=== PATIENT | male | born 1960 | race Caucasian/White ===

== ENCOUNTER 2020-02-03 06:34 | Emergency (ER) | payer MEDICARE, OTHER ==
[2020-02-03 08:03] LABS: ABSOLUTE EOSINOPHILS # (AUTO) 0.1 10^3/uL (0.0-0.6); ABSOLUTE LYMPHOCYTES (AUTO) 1.5 10^3/uL (0.5-4.7); ABSOLUTE MONOCYTES (AUTO) 0.4 10^3/uL (0.1-1.4); ABSOLUTE NEUT (AUTO) 7.3 10^3/uL (1.7-8.2); BASOPHILS % (AUTO) 0.5 % (0-2); EOSINOPHILS % (AUTO) 1.2 % (0-6); HEMATOCRIT 43.1 % (37.9-51.0); HEMOGLOBIN 14.2 g/dL (13.5-17.0); LYMPHOCYTES % (AUTO) 15.8 % (13-45); MEAN CORPUSCULAR HEMOGLOBIN 28.2 pg (27.0-33.4); MEAN CORPUSCULAR VOLUME 85 fl (80-97); MONOCYTES % (AUTO) 4.4 % (3-13); PLATELET COUNT 310 10^3/uL (150-450); RED BLOOD COUNT 5.05 10^6/uL (4.35-5.55); RED CELL DISTRIBUTION WIDTH 14.6 % (11.5-14.0); SEGMENTED NEUTROPHILS % (AUTO) 78.1 % (42-78); TOTAL CELLS COUNTED % (AUTO) 100 %; WHITE BLOOD COUNT 9.4 10^3/uL (4.0-10.5)
[2020-02-03 08:22] LABS: ALBUMIN 4.3 g/dL (3.5-5.0); ALKALINE PHOSPHATASE 106 U/L (38-126); ANION GAP 6 (5-19); ASPARTATE AMINO TRANSFERASE 26 U/L (17-59); BILIRUBIN,DIRECT 0.1 mg/dL (0.0-0.4); BILIRUBIN,TOTAL 1.2 mg/dL (0.2-1.3); BLOOD UREA NITROGEN 17 mg/dL (7-20); CALCIUM 9.8 mg/dL (8.4-10.2); CARBON DIOXIDE 29 mmol/L (22-30); CHLORIDE 102 mmol/L (98-107); GLUCOSE 219 mg/dL (75-110); POTASSIUM 5.2 mmol/L (3.6-5.0); TOTAL PROTEIN 7.2 g/dL (6.3-8.2)
--- NOTE | 2020-02-03 08:25 | ER Document Report ---
ED General - General Chief Complaint: Nausea Stated Complaint: NOT FEELING WELL Time Seen by Provider: 02/03/20 08:21 Primary Care Provider: TANISHA HARRIS DPM [Primary Care Provider] - Follow up as needed TRAVEL OUTSIDE OF THE [place] IN LAST 30 DAYS: No - HPI Notes: 59-year-old male presents with nausea. Patient states that he had a nuclear stress test done on Saturday, 5 days ago. Since then he has been experiencing nausea. He awoke at 3 AM this morning with increasing nausea and has had several episodes of vomiting, which is new. Describes emesis as clear phlegm or yellow in color. He notes some central abdominal pain described as aggravating. He has had some diarrhea as well. He has been tolerating p.o. since the stress test. He reports that he took ranitidine which made his symptoms worse, however this morning he then took some Pepto-Bismol which has helped. Symptoms are better if he is at rest. He denies urinary symptoms. He denies chest pain. He reports chronic shortness of breath due to his "four lung diseases", this is at baseline. He states that he did reach out to the physician that performed the stress test, he was told that nausea can be expected. He reports that he was told the stress test was normal. He also notes intermittent leg twitching, described as muscle spasm. Initially states that due to his symptoms he received COVID testing on Saturday, has not received results yet. - Related Data Allergies/Adverse Reactions: Sulfa (Sulfonamide Antibiotics) Allergy (Verified 02/03/20 09:51) Past Medical History - Social History Smoking Status: Unknown if Ever Smoked Family History: Reviewed & Not Pertinent Review of Systems - Review of Systems Constitutional: Chills. denies: Fever EENT: No symptoms reported Cardiovascular: denies: Chest pain Respiratory: denies: Cough Gastrointestinal: Diarrhea, Nausea, Vomiting Genitourinary: denies: Dysuria Musculoskeletal: Muscle pain Skin: No symptoms reported Hematologic/Lymphatic: Other - Recently diagnosed with prostate cancer, awaiting radiation Neurological/Psychological: denies: Weakness Physical Exam - Vital signs Vitals: Temp Pulse Resp BP Pulse Ox 98.8 F 59 L 22 H 172/69 H 99 02/03/20 06:49 02/03/20 06:49 02/03/20 06:49 02/03/20 06:49 02/03/20 06:49 Interpretation: Bradycardic - On metoprolol - General General appearance: Appears well, Alert In distress: None - HEENT Head: Normocephalic, Atraumatic Neck: Normal - Respiratory Breath sounds: Normal Chest palpation: No: Tender - Cardiovascular Rhythm: Regular, Bradycardia Heart sounds: Normal auscultation Normal capillary refill: Yes - Abdominal Distension: No distension Bowel sounds: Normal Tenderness: Tender - mild epigastric. No: Guarding, Rebound - Extremities General lower extremity: Normal inspection, Nontender, Normal strength - Neurological Cognition: Normal Orientation: AAOx4 Motor strength normal: LLE, RLE - Skin Skin Temperature: Warm Skin Moisture: Dry Course - Re-evaluation Re-evalutation: 02/03/20 09:03 59-year-old male here with nausea following nuclear stress test 5 days ago. Now with vomiting this morning. He is well-appearing on exam, abdomen is not peritoneal neck, very mild epigastric tenderness. Appears well-hydrated. Given his medical history, will obtain CT abdomen to assess for obstruction versus col itis. Suspecting gastritis versus gastroenteritis versus medication reaction as cause. Will treat symptomatically with Pepcid and Phenergan. Laboratory evaluation ordered. Would not suspect cardiopulmonary etiology at this time. 02/03/20 09:52 Previously checked on patient, he reports he is feeling better, awaiting CT 02/03/20 12:06 CT abdomen has resulted, no acute intra-abdominal pathology 02/03/20 12:41 Patient has tolerated p.o., no further vomiting while in the ED. He was updated on results. Prescribed Phenergan. Encourage PCP follow-up. Return precautions given, stable at time of discharge. - Vital Signs Vital signs: Temp Pulse Resp BP Pulse Ox 98.3 F 54 L 19 169/74 H 100 02/03/20 07:40 02/03/20 07:40 02/03/20 10:00 02/03/20 07:40 02/03/20 10:00 - Laboratory Result Diagrams: 02/03/20 07:43 02/03/20 07:43 Laboratory results interpreted by me: 02/03/20 02/03/20 02/03/20 07:43 07:43 09:42 RDW 14.6 H Seg Neutrophils % 78.1 H Sodium 136.5 L Potassium 5.2 H Glucose 219 H Urine Protein 100 H 02/03/20 10:27 No leukocytosis or left shift, no acute anemia Sodium okay Potassium very mild elevation, suspect due to med use, no EKG changes AST/ALT within normal limits, lipase within normal limits Trop negative No UTI 02/03/20 10:42 - Diagnostic Test Radiology reviewed: Image reviewed, Reports reviewed Discharge - Discharge Clinical Impression: Nausea and vomiting Qualifiers: Vomiting type: unspecified Vomiting Intractability: non-intractable Qualified Code(s): R11.2 - Nausea with vomiting, unspecified Condition: Stable Disposition: HOME, SELF-CARE Instructions: Antinausea Medication ([facility]) Additional Instructions: Use Phenergan as needed for nausea. Be sure to drink plenty of fluids. Please follow-up with your primary doctor. Return to the ED for worsening symptoms. Prescriptions: Promethazine HCl [Phenergan 25 mg Tablet] 1 tab PO Q6HP PRN #15 tablet PRN Reason: Referrals: TANISHA HARRIS DPM [Primary Care Provider] - Follow up as needed
--- NOTE | 2020-02-03 08:27 | RADIOLOGY REPORT (SQ) ---
EXAM DESCRIPTION: CHEST SINGLE VIEW IMAGES COMPLETED DATE/TIME: 02/03/2020 8:11 am REASON FOR STUDY: epigastric COMPARISON: None. EXAM PARAMETERS: NUMBER OF VIEWS: One view. TECHNIQUE: Single frontal radiographic view of the chest acquired. RADIATION DOSE: NA LIMITATIONS: None. FINDINGS: LUNGS AND PLEURA: Low lung volumes limits the examination. No acute pulmonary consolidat ion. No pneumothorax or pleural effusion. MEDIASTINUM AND HILAR STRUCTURES: No masses. Contour normal. HEART AND VASCULAR STRUCTURES: Heart normal in size. Normal vasculature. BONES: No acute findings. HARDWARE: asw specialist loop overlies the periphery of the upper anterior left chest wall. OTHER: No other significant finding. IMPRESSION: 1. NO ACUTE RADIOGRAPHIC FINDING IN THE CHEST. TECHNICAL DOCUMENTATION: JOB ID: [id number] 2010 [employer]- All Rights Reserved Reading location - IP/workstation name: [email or web address]
[2020-02-03 08:31] LABS: CREATINE KINASE MB 0.85 ng/mL (<4.55)
[2020-02-03 08:35] LABS: TROPONIN I < 0.012 ng/mL
[2020-02-03 08:45] LABS: INTERNATIONAL RATION (INR) 0.91; PROTHROMBIN TIME 12.5 SEC (11.4-15.4)
[2020-02-03] MEDS ORDERED: FAMOTIDINE INJ/PF 20 MG/2 ML SDV IV ONE (08:45)
[2020-02-03] MEDS ORDERED: PROMETHAZINE HCL INJ 25 MG/1 ML VIAL IV ONE (08:46)
[2020-02-03 10:17] LABS: APPEARANCE,URINE CLEAR; BILIRUBIN,URINE NEGATIVE (NEGATIVE); COLOR,URINE YELLOW; GLUCOSE, URINE NEGATIVE (NEGATIVE); KETONES,URINE NEGATIVE (NEGATIVE); LEUKOCYTE ESTERASE,URINE NEGATIVE (NEGATIVE); NITRITE,URINE NEGATIVE (NEGATIVE); PROTEIN,URINE 100 mg/dL (NEGATIVE); UROBILINOGEN,URINE NEGATIVE mg/dL (<2.0)
--- NOTE | 2020-02-03 12:03 | RADIOLOGY REPORT (SQ) ---
EXAM DESCRIPTION: CT ABD/PELVIS WITH IV ORAL IMAGES COMPLETED DATE/TIME: 02/03/2020 11:40 am REASON FOR STUDY: nausea and vomiting, central abd pain, eval obstr COMPARISON: 11/10/2019 TECHNIQUE: CT scan of the abdomen and pelvis performed using helical scanning technique with dynamic intravenous contrast injection. No oral contrast. Images reviewed with lung, soft tissue, and bone windows. Reconstructed coronal and sagittal MPR images reviewed. Delayed images for evaluation of the urinary system also acquired. All images stored on PACS. All CT scanners at this facility use dose modulation, iterative reconstruction, and/or weight based d osing when appropriate to reduce radiation dose to as low as reasonably achievable (ALARA). [facility]: Dose Right [facility]: CareDose [facility]: Dose Right [facility]: Teradose 4D [facility]: Helidyne CONTRAST TYPE AND DOSE: contrast/concentration: Isovue 350.00 mmol/ml; Total Contrast Delivered: 100 .0 ml; Total Saline Delivered: 43.3 ml RENAL FUNCTION: BUN 17; creatinine 0.87 RADIATION DOSE: CT Rad equipment meets quality standard of care and radiation dose reduction techniq ues were employed. CTDIvol: 14.2 - 17.3 mGy. DLP: 2048 mGy-cm.. LIMITATIONS: None. FINDINGS: LOWER CHEST: No significant findings. No nodules or infiltrates. LIVER: Hepatic steatosis. No focal mass lesion. SPLEEN: Stable cystic lesion. No acute findings. PANCREAS: No masses. No significant calcifications. No adjacent inflammation or peripancreatic fluid collections. Pancreatic duct not dilated. GALLBLADDER: Surgically absent. ADRENAL GLANDS: No significant masses or asymmetry. RIGHT KIDNEY AND URETER: No solid masses. No significant calcifications. No hydronephrosis or hyd roureter. LEFT KIDNEY AND URETER: No solid masses. No significant calcifications. No hydronephrosis or hydr oureter. AORTA AND VESSELS: No aneurysm. No dissection. Renal arteries, SMA, celiac without stenosis. RETROPERITONEUM: No retroperitoneal adenopathy, hemorrhage or masses. BOWEL AND PERITONEAL CAVITY: No masses or inflammatory changes. No free fluid or peritoneal masses. APPENDIX: Normal. PELVIS: No mass. No free fluid. Normal bladder. ABDOMINAL WALL: No masses. No hernias. BONES: Degenerative changes are seen of the hips and spine. No acute osseous findings. 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 OTHER: No other significant finding. IMPRESSION: Status post cholecystectomy. No evidence of acute intra-abdominal infectious/inflammato ry process. Chronic and incidental findings as detailed above. TECHNICAL DOCUMENTATION: JOB ID: [id number] Quality ID # [id number]: Final reports with documentation of one or more dose reduction techniques (e.g., Au tomated exposure control, adjustment of the mA and/or kV according to patient size, use of iterative reconstruction technique) 2010 [employer]- All Rights Reserved Reading location - IP/workstation name: [email or web address]
[2020-02-03 13:42] VITALS: BP 143/73
--- NOTE | 2020-02-04 12:22 | EKG REPORT ---
SEVERITY:- ABNORMAL ECG - SINUS BRADYCARDIA NONSPECIFIC T ABNORMALITIES, ANT-LAT LEADS : Confirmed by: Demond West MD 04-Feb-2020 12:22:01
== END 2020-02-03 13:42 | disposition home or self-care (01) ==
LOC: ER 06:34
DX: R11.2 Nausea with vomiting, unspecified (principal); R10.9 Unspecified abdominal pain; R10.816 Epigastric abdominal tenderness; R19.7 Diarrhea, unspecified; R06.02 Shortness of breath; Z98.890 Other specified postprocedural states; M62.838 Other muscle spasm; R68.83 Chills (without fever); C61 Malignant neoplasm of prostate; Z88.2 Allergy status to sulfonamides
CPT/HCPCS: 93005; 99284; 96374; 96375; 36415; 82553; 83690; 85025; 85610; 80053; 81001; 84484; 71045; 74177; 93010; J2550; S0028